=== PATIENT | female | born 1975 | race Caucasian/White ===

== ENCOUNTER 2019-10-25 08:35 | Emergency (ER) | payer BC, OTHER ==
--- NOTE | 2019-10-25 15:56 | RAD ---
LEFT FOOT THREE VIEWS: 10/25/19 A fracture of the mid shaft of the fifth metatarsal is present. Displacement is minimal. The remainin g metatarsals appear intact. A large calcaneal spur is present. IMPRESSION: Fracture of the fifth metatarsal mid shaft. POS: HOME
== END 2019-10-25 09:45 | disposition home or self-care (01) ==
LOC: BURERS 08:35
DX: S92.352A Displaced fracture of fifth metatarsal bone, left foot, initial encounter for closed fracture (principal); E03.9 Hypothyroidism, unspecified; Z79.899 Other long term (current) drug therapy; W10.9XXA Fall (on) (from) unspecified stairs and steps, initial encounter